=== PATIENT | male | born 1970 | race Caucasian/White ===

== ENCOUNTER 2018-05-28 02:57 | Emergency (ER) | payer OTHER ==
[~2018-05-28] VITALS: Ht 180.3 cm; Wt 129.3 kg
[2018-05-28] MEDS ORDERED: ATORVASTATIN CA20 M1 PO (03:23)
[2018-05-28] MEDS ORDERED: ESCITALOPRAM OX20 MG PO (03:24)
[2018-05-28] MEDS ORDERED: BENICAR HCT 401 EAC1 PO (03:24)
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
[2018-05-28] MEDS ORDERED: IBUPROFEN800 M1 PO (04:32)
[2018-05-28] MEDS ORDERED: CYCLOBENZAPRINE10 M1 PO (04:32)
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
[2018-05-28] MEDS ORDERED: PERCOCET 5-3251 EACH PO (04:37)
[2018-05-28 04:39] VITALS: BP 138/84
== END 2018-05-28 04:40 ==
LOC: ERH 02:57
DX: M47.812 Spondylosis without myelopathy or radiculopathy, cervical region (principal); M54.5 Low back pain; I10 Essential (primary) hypertension; F32.9 Major depressive disorder, single episode, unspecified